=== PATIENT | male | born 1955 | race Caucasian/White ===

== ENCOUNTER 2018-12-14 14:18 | Emergency (ER) | payer SELFPAY ==
[2018-12-14] MEDS ORDERED: Albuterol/Ipratropium Neb 3 ML AERS HHN ONE ×2 (14:30→14:41)
--- NOTE | 2018-12-14 14:37 | ED Physician Chart ---
ED Chief Complaint/HPI - Patient Information Date Seen:: 12/14/18 Time Seen:: 14:21 Chief Complaint:: Chest pain. History of Present Illness:: Brought in by ambulance because pt has had chest pain for about 7 days. Pain is characterized as intermittent, sharp, and localized at left upper chest. Pt states that he already took his daily ASA earlier today. Pt was given sublingual NTG without definite improvement of his chest pain. ? dyspnea. Pt states that he has had a cough with yellow sputum production for about 2 weeks. No fever. No other associated cardiac symptoms. Pt gives inconsistent history. Pt has not been coughing today. His chest pain can be precipitated with chest wall movements or palpation. Pt does not appear in distress but demands to have IV morphine. Allergies:: Allergies Allergy/AdvReac Type Severity Reaction Status Date / Time No Known Allergies Allergy Verified 12/14/18 14:31 Vitals:: see Nurse Note. Historian:: Patient Family MD/PCP:: Dr. Martinez (? sp) LMP:: N/A Review:: Nurse's Note Reviewed ED Review of Systems - Review of Systems General/Constitutional: No fever Skin: No rash, No bruising Head: No headache, No light-headedness Eyes: No loss of vision, No pain, No diplopia ENT: No earache, No nasal drainage, No sore throat Neck: No thyromegaly Cardio Vascular: Chest pain ( c/w noncardiac in etiology.), No palpitations, No PND, No orthopnea, No edema Pulmonary: SOB, Cough, Sputum, No wheezing GI: No nausea, No pain G/U: No dysuria, No frequency, No hematuria Psychiatric: No prior psych history Hematopoietic: No bruising, No lymphadenopathy Allergic/Immuno: No urticaria, No angioedema Neurological: No syncope, No focal symptoms, No paresthesia, No headache, No seizure, No dizziness, No confusion ED Past Medical History - Past Medical History Past Medical History: DM, CAD, Asthma/COPD, Seizures Family History: Heart disease, Diabetes Melitus, HTN Social History: Non Smoker, No Alcohol, No Drug Use, Single, Lives Alone, Employed Employment:: [employer] Surgical History: other (LUE surgery in 2006) Psychiatricy History: None Medication: Reviewed Family Medical History - Family Member Mother History Unknown: Yes ED Physical Exam - Physical Examination General/Constitutional: Awake, Well-developed, well-nourished (male), Alert, No distress, Non-toxic appearing Other Gen/Cons comments:: Pt speaks clearly and is in mild respiratory distress. Head: Atraumatic Eyes: Lids, conjuctiva normal, PERRL, EOMI Skin: Well hydrated, No lymphadenopathy ENMT: External ears, nose nl, Nasal exam nl, Oropharynx nl Neck: Nontender, Full ROM w/o pain, No JVD, No nuchal rigidity, No mass, No stridor Respiratory: Nl effort/Exclusion, Clear to Auscultation, No Wheeze/Rhonchi/Rales Other Respiratory comments:: slight diffuse decrease in BS. Cardio Vascular: RRR, No murmur, gallop, rubs GI: No tenderness/rebounding/guarding, No organomegaly, Normal BS's, Nondistended, No mass/bruits Other GI comments:: obese but soft. Extremities: No tenderness or effusion, No edema Neuro/Psych: Alert/oriented (oriented x 3), No focal deficits ED Labs/Radiology/EKG Results - Lab Results Results: Laboratory Results - last 24 hr 12/14/18 12/14/18 12/14/18 15:00 15:00 15:00 WBC 7.9 RBC 4.46 Hgb 13.0 Hct 39.1 L MCV 87.6 MCH 29.2 MCHC Differential 33.4 RDW 13.1 Plt Count 134 L MPV 7.7 Neutrophils % 82.6 H Lymphocytes % 12.9 L Monocytes % 3.8 Eosinophils % 0.1 Basophils % 0.6 PT 10.6 INR 1.02 PTT (Actin FS) 25.6 L Sodium 139 Potassium 4.3 Chloride 104 Carbon Dioxide 27.0 Anion Gap 12.3 BUN 20 Creatinine 1.1 Est GFR ( Amer) > 60.0 Est GFR (Non-Af Amer) > 60.0 BUN/Creatinine Ratio 18.2 Glucose 181 H POC Glucose Calcium 8.9 Total Bilirubin 0.3 AST 25 ALT 23 Alkaline Phosphatase 45 Troponin I Total Protein 6.6 Albumin 4.1 L Globulin 2.5 Albumin/Globulin Ratio 1.6 12/14/18 12/14/18 15:00 15:06 WBC RBC Hgb Hct MCV MCH MCHC Differential RDW Plt Count MPV Neutrophils % Lymphocytes % Monocytes % Eosinophils % Basophils % PT INR PTT (Actin FS) Sodium Potassium Chloride Carbon Dioxide Anion Gap BUN Creatinine Est GFR ( Amer) Est GFR (Non-Af Amer) BUN/Creatinine Ratio Glucose POC Glucose 157 H Calcium Total Bilirubin AST ALT Alkaline Phosphatase Troponin I 0.01 Total Protein Albumin Globulin Albumin/Globulin Ratio - EKG Interpretations EKG Time:: 14:26 Rate & Rhythm: NSR with VR 84 Comments:: No acute ischemic changes. ED Septic Shock - . Is Septic Shock (SBP<90, OR Lactate>4 mmol\L) present?: No ED Reassessment (Disposition) - Reassessment Reassessment:: 1618 Pt requested food, got up and walked around the ER without dyspnea. Pt was comfortable without distress. Pt then just walked out without waiting to discuss with me. Pt eloped without completion of this ER visit. - Diagnosis Diagnosis:: Noncardiac chest wall pain. Diabetes mellitus. H/O HTN. - Patient Disposition Discharge/Transfer:: [facility]ope/AWOL Time:: 16:18 Condition at Disposition:: Stable, Improved
[2018-12-14 15:10] LABS: % EOSINOPHILS 0.1 % (0.0-5.0)
[2018-12-14 15:12] LABS: % BASOPHILS 0.6 % (0.0-2.0); % LYMPHOCYTES 12.9 % (20.0-50.0); % MONOCYTES 3.8 % (2.0-10.0); % NEUTROPHILS 82.6 % (40.0-80.0); HEMATOCRIT 39.1 % (41.0-60); MEAN CELL VOLUME 87.6 fl (80-99); MEAN CORPUSCULAR HEMOGLOBIN 29.2 pg (26.0-30.0); MEAN CORPUSCULAR HGB CONC 33.4 pg (28.0-36.0); MONOCYTE ABSOLUTE 0.3 Th/cmm (0.3-1.0); NEUTROPHILE ABSOLUTE 6.6 Th/cmm (1.8-8.0); PLATELET COUNT 134 Th/cmm (150-400); RED BLOOD COUNT 4.46 Mil/cmm (4.30-5.70); RED CELL DISTRIBUTION WIDTH 13.1 % (11.5-20.0); WHITE BLOOD COUNT 7.9 Th/cmm (4.8-10.8)
[2018-12-14 15:27] LABS: ALB/GLOB RATIO 1.6 (1.0-1.8); ALBUMIN 4.1 gm/dL (4.2-5.5); ALKALINE PHOSPHATASE 45 U/L (34-104); ANION GAP 12.3 (7.0-16.0); BILIRUBIN,TOTAL 0.3 mg/dL (0.3-1.0); BUN - UREA NITROGEN 20 mg/dL (7-25); CALCIUM SERUM 8.9 mg/dL (8.6-10.3); CHLORIDE 104 mEq/L (98-107); CREATININE - SERUM 1.1 mg/dL (0.7-1.3); GFR AFRICAN-AMERICAN > 60.0 ml/min (>90); GFR NON AFRICAN-AMERICAN > 60.0 ml/min; GLUCOSE 181 mg/dL (70-105); POTASSIUM SERUM 4.3 mEq/L (3.5-5.1); SGOT 25 U/L (13-39); SGPT/ALT 23 U/L (7-52); SODIUM SERUM 139 mEq/L (136-145); TOTAL PROTEIN,SERUM 6.6 gm/dL (6.0-8.3)
[2018-12-14 15:37] LABS: INR 1.02 (0.5-1.4)
[2018-12-15 06:05] LABS: A1C 6.2 % (4.8-5.6)
--- NOTE | 2018-12-15 09:35 | Diagnostic Imaging Report ---
Portable chest x-ray HISTORY: Pain The overall heart size is difficult to assess with portable technique. No acute focal pulmonary processes. No hilar or mediastinal abnormalities. IMPRESSION: No acute abnormalities
== END 2018-12-14 16:21 ==
LOC: ER 14:18
DX: R07.89 Other chest pain (principal); I10 Essential (primary) hypertension; E11.9 Type 2 diabetes mellitus without complications; I25.10 Atherosclerotic heart disease of native coronary artery without angina pectoris; J44.9 Chronic obstructive pulmonary disease, unspecified
CPT/HCPCS: 99284; 96374; 94640; 93005; 71045; 84484; 36415; 36416; 82948; 85025; 85610; 83036; 80053; J1885